=== PATIENT | female | born 1995 | race Caucasian/White ===

== ENCOUNTER 2023-04-01 21:24 | Emergency (ER) | payer OTHER, SELFPAY ==
[2023-04-01 21:33] VITALS: BP 128/81; PULSE 115; RESP 18; TEMP 36.1; O2SAT 94; BMI 33.1
[2023-04-01 22:00] VITALS: BP 124/84; PULSE 64; RESP 16; O2SAT 98
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
== END 2023-04-01 23:40 | disposition home or self-care (01) ==
PROVIDERS: Emergency Provider Emergency Medicine; PCP Physician Assistant
DX: Z04.1 Encounter for examination and observation following transport accident (principal); M54.50 Low back pain, unspecified
CPT/HCPCS: 99282; 99283